=== PATIENT | male | born 1965 | race Caucasian/White ===

== ENCOUNTER 2017-10-19 10:11 | Observation (INO) | payer OTHER ==
[~2017-10-19] VITALS: Ht 177.8 cm; Wt 77.1 kg
--- NOTE | 2017-10-19 11:51 | ED GI/GU/ABDOMINAL COMPLAINT ---
History of Present Illness General Chief Complaint: Nausea, Vomiting, Diarrhea Stated Complaint: N/V/D Source: patient Exam Limitations: no limitations Allergies Coded Allergies: NO KNOWN ALLERGIES (02/03/11) Reconcile Medications Ondansetron (Zofran Odt) 4 MG TAB.RAPDIS 1 TAB PO Q6 PRN NAUSEA Triage Note: PT COMPLAINS OF N/V/ THAT STARTED YESTERDAY, ABD CRAMPING THAT STARTED AFTER THE VOMITTING, PT STATES THAT HE IS UNABLE TO HOLD ANYTHING DOWN. DENIES URINARY SYMPTOMS. ALSO STATES THAT HE HAS BODY ACHES Triage Nurses Notes Reviewed? yes Onset: Abrupt Duration: day(s): (2), constant, continues in ED Timing: recent history Location: generalized abdomen Radiation: no radiation Activities at Onset: none No Modifying Factors: none HPI: 52-year-old male comes into the emergency room for further evaluation of nausea vomiting diarrhea. Symptoms began yesterday. Patient has had more episodes of vomiting. Some general abdominal cramping. Some associated runny nose chills and body aches. Patient reports it is been unable to keep any fluids down at home. He comes in for further evaluation. (Osorio Callahan) Vital Signs & Intake/Output Vital Signs & Intake/Output Vital Signs Date Time Temp Pulse Resp B/P B/P Pulse O2 O2 Flow FiO2 Mean Ox Delivery Rate 10/20 1017 98.0 70 16 128/77 98 Room Air ED Intake and Output 10/21 0000 10/20 1200 Intake Total Output Total 20 Balance -20 Output, 20 Emesis (Epifanio MONZON,Collin Arriola) Past History Travel History Traveled to [place] past 21 day No Medical History Any Pertinent Medical History? see below for history Neurological: NONE EENT: NONE Cardiovascular: NONE Respiratory: NONE Gastrointestinal: NONE Hepatic: NONE Renal: NONE Musculoskeletal: NONE Psychiatric: NONE Endocrine: NONE Blood Disorders: NONE Cancer(s): NONE PHOTOGRAPHER SCIENTIFIC/Reproductive: NONE Surgical History Surgical History: non-contributory Psychosocial History What is your primary language Uzbek Tobacco Use: Current Daily Use Daily Tobacco Use Amount/Type: => 5 Cigarettes daily ETOH Use: denies use Illicit Drug Use: denies illicit drug use Family History Hx Contributory? No (Osorio Callahan) Review of Systems Review of Systems Constitutional: Reports: see HPI. EENTM: Reports: see HPI. Respiratory: Reports: no symptoms. Cardiovascular: Reports: no symptoms. GI: Reports: see HPI. Genitourinary: Reports: no symptoms. Musculoskeletal: Reports: no symptoms. Skin: Reports: no symptoms. Neurological/Psychological: Reports: no symptoms. Hematologic/Endocrine: Reports: no symptoms. Immunologic/Allergic: Reports: no symptoms. All Other Systems: Reviewed and Negative (Rowdy HASSAN,Osorio) Physical Exam Physical Exam General Appearance: well developed/nourished, no apparent distress, alert, awake Head: atraumatic, normal appearance Eyes: Bilateral: normal appearance. Ears, Nose, Throat, Mouth: hearing grossly normal, moist mucous membrane Neck: normal inspection, full range of motion Respiratory: normal breath sounds, no respiratory distress Cardiovascular: regular rate/rhythm Gastrointestinal: soft, tenderness Back: normal inspection Extremities: normal range of motion Neurologic/Psych: awake, alert, oriented x 3, normal gait, normal mood/affect Skin: intact, normal color Core Measures ACS in differential dx? No Sepsis Present: No Sepsis Focused Exam Completed? No (Osorio Callahan) Progress Differential Diagnosis: appendicitis, biliary colic, bowel obstruction, cholecystitis, diverticulitis, gastritis, ischemic bowel, pancreatitis, peptic ulcer, PUD/GERD, perforated viscous, pyelonephritis, SBO, ureterolithiasis, urinary retention, urethritis, UTI/pyelo Diagnostic Imaging: Viewed by Me: CT Scan. Discussed w/RAD: CT Scan. Radiology Impression: PATIENT: MCKENNA KENYON PRESENT AGE: 52 PATIENT ACCOUNT NO: [id number] : 66 LOCATION: [facility] ORDERING PHYSICIAN: Osorio HASSAN SERVICE DATE: 10/19/17 EXAM TYPE : CAT - CT ABD & PELVIS W IV CONTRAST EXAMINATION: CT ABDOMEN AND PELVIS WITH CONTRAST CLINICAL INFORMATION: Abdominal pain. Vomiting. COMPARISON: Ultrasound of abdomen 11/18/2008 TECHNIQUE: Multidetector volumetric imaging was performed of the abdomen and pelvis following IV administration of 95 mL of Optiray 320 intravenous contrast. Sagittal and coronal reformatted images were obtained on the technologist's workstation. DLP: 387.57 mGy-cm FINDINGS: LUNG BASES: The visualized lung bases are unremarkable. LIVER, GALLBLADDER, AND BILIARY TREE: There is mild low attenuation of liver parenchyma diffusely consistent with mild fatty change. No focal liver lesion. No intrahepatic bile duct dilatation. The gallbladder is unremarkable with no evidence of radiopaque gallstones, gallbladder wall thickening, or obvious pericholecystic inflammatory changes. PANCREAS: Unremarkable. SPLEEN: Unremarkable. Small splenule at the superior splenic margin ADRENAL GLANDS: Unremarkable. KIDNEYS AND URETERS: The kidneys are normal in size, shape, and attenuation. No hydronephrosis, hydroureter, or calculi seen. No perinephric stranding. BLADDER: Unremarkable. GASTROINTESTINAL TRACT: Moderate to large-volume of stool in the colon. Stool seen from cecum through the pelvis. No acute abnormality. No bowel obstruction. No bowel wall thickening or edema. No diverticula of colon. The appendix is not seen. There is no inflammation of the mesentery. The small bowel loops are unremarkable. MESENTERY: No inflammation. No free air or free fluid. ABDOMINAL WALL: Small fat -containing umbilical hernia. LYMPH NODES: Normal. VASCULAR: Unremarkable. PELVIC VISCERA: Prostate measures 4.8 cm transverse. Small coarse calcification in the prostate. OSSEOUS STRUCTURES: Unremarkable. IMPRESSION: No acute abnormality CT scan abdomen and pelvis. DICTATED BY: Ray Morton MD DATE/TIME DICTATED:10/19/171539 FUR REPAIR INSPECTOR:NAKIA DATE/TIME TRANSCRIBED:1539 CONFIDENTIAL, DO NOT COPY WITHOUT APPROPRIATE AUTHORIZATION. < Electronically signed in Other Vendor System> SIGNED BY: Ray Morton MD 1553 Initial ED EKG: none (Osorio Callahan) Hand-Off Endorsed To: Epifanio MONZON,Collin Arriola Endorsed Time: 1925 Pending: other (REEVLAUATION) (Savannah Pickett MD) Plan of Care: Orders Procedure Date/time Status Discharge Patient 10/20 1009 Active Current Medications Sig/Janie Start time Last Medication Dose Stop Time Status Admin Alprazolam 1 MG ONCE ONE 10/20 899 CAN (Xanax) 10/20 900 Methadone HCl 65 MG ONCE ONE 10/20 899 CAN (Dolophine) 10/20 900 Ondansetron HCl 4 MG Q6 10/19 1800 AC 10/20 (Zofran) 0641 Baclofen 10 MG TID 10/19 1745 AC 10/19 (Lioresal 10MG 1855 Tablet) Hand-Off Endorsed To: Savannah Pickett MD Endorsed Time: 0700 Pending: other (RE-EVAL) (Epifanio MONZON,Collin Arriola) Departure Departure Condition: Stable Referrals: Patient Has No Primary Care Dr (PCP/Family) Departure Forms: Customer Survey General Discharge Information Prescriptions: Current Visit Scripts Ondansetron (Zofran Odt) 1 TAB PO Q6 PRN NAUSEA #20 TAB (Osorio Callahan) Departure Time of Disposition: 1010 Disposition: HOME OR SELF CARE Clinical Impression Primary Impression: Gastroenteritis Secondary Impressions: Methadone withdrawal PA/FIBROUS PLASTERER Co-Sign Statement Statement: ED Attending supervision documentation- [X] I saw and evaluated the patient. I have also reviewed all the pertinent lab results and diagnostic results. I agree with the findings and the plan of care as documented in the PA's/FIBROUS PLASTERER's documentation. [X] I have reviewed the ED Record and agree with the PA's/FIBROUS PLASTERER's documentation. [] Additions or exceptions (if any) to the PAs/FIBROUS PLASTERER's note and plan are summarized below: [] (Savannah Pickett MD) ED Attending Observation Initial Observation Note: I have seen and personally examined KOSTASMCKENNA on 10/19/17 at 1743. I agree with the current emergency department documentation. The disposition (admission or discharge) is uncertain at this time, he needs a period of observation for the following reason(s): The ED Nurse caring for this patient has been personally informed as to what the patient is being observed for. (Osorio Callahan) Initial Observation Note: INTRACTABLE NAUSEA AND VOMITING, NOT TOLERATING PO. IV FLUIDS, ANTIEMETICS, CONSIDER SOME DEGREE OF OPIATE WITHDRAWAL, PLAN IS TO HAVE PATIENT BE ABLE TO TOLERATE PO AND THEN DISCHARGE HOME Observation Re-Evaluation: I have reevaluated MCKENNA KENYON on 10/20/17 at 0715. The physical findings that support the continued need to observe this patient include [PENDING TOLERATING PO]. 9 AM PATIENT NOW REPORTS THAT HE ABRUPTLY STOPPED HIS METHADONE. CONFIRMED WITH CLINIC IN [place], LAST DOSE 85 MG ON THE October. METHADONE ORDERED. LOCAL CLINICS PROVIDED TO PATIENT HE CAN NO LONGER TRAVEL TO [place]. Observation Discharge: I have reevaluated MCKENNA KENYON on 10/20/17 at 1009. The patient is: ([X]): Stable for discharge (): To be admitted to Nursing Floor (): To be placed in Observation on Nursing Floor (): For transfer to other facility The patient was being observed for [INTRACTABLE NAUSEA AND VOMITING, METHADONE WITHDRAWAL] As a result of that observation, I have determined [STABLE FOR DISCHARGE HOME, TOLERATING PO, WILL FOLLOW UP WITH OUTPATIENT LIST OF DETOX CLINICS]. (Nieves MONZON,Savannah) Observation Re-Evaluation: I have reevaluated MCKENNA KENYON on 10/20/17 at 0019. The physical findings that support the continued need to observe this patient include [nausea is much better controlled. Still feels very weak. We'll give ice chips and continue to measure. His abdomen is soft and nontender. No right lower quadrant tenderness.]. (Epifanio MONZON,Collin Arriola) Departure Time of Disposition: 1010 Disposition: HOME OR SELF CARE Clinical Impression Primary Impression: Gastroenteritis Secondary Impressions: Methadone withdrawal PA/FIBROUS PLASTERER Co-Sign Statement Statement: ED Attending supervision documentation- [X] I saw and evaluated the patient. I have also reviewed all the pertinent lab results and diagnostic results. I agree with the findings and the plan of care as documented in the PA's/FIBROUS PLASTERER's documentation. [X] I have reviewed the ED Record and agree with the PA's/FIBROUS PLASTERER's documentation. [] Additions or exceptions (if any) to the PAs/FIBROUS PLASTERER's note and plan are summarized below: [] (Savannah Pickett MD) ED Attending Observation Initial Observation Note: I have seen and personally examined MCKENNA KENYON on 10/19/17 at 1743. I agree with the current emergency department documentation. The disposition (admission or discharge) is uncertain at this time, he needs a period of observation for the following reason(s): The ED Nurse caring for this patient has been personally informed as to what the patient is being observed for. (Osorio Callahan) Initial Observation Note: INTRACTABLE NAUSEA AND VOMITING, NOT TOLERATING PO. IV FLUIDS, ANTIEMETICS, CONSIDER SOME DEGREE OF OPIATE WITHDRAWAL, PLAN IS TO HAVE PATIENT BE ABLE TO TOLERATE PO AND THEN DISCHARGE HOME Observation Re-Evaluation: I have reevaluated KOSTASMCKENNA HAHN on 10/20/17 at 0715. The physical findings that support the continued need to observe this patient include [PENDING TOLERATING PO]. 9 AM PATIENT NOW REPORTS THAT HE ABRUPTLY STOPPED HIS METHADONE. CONFIRMED WITH CLINIC IN [place], LAST DOSE 85 MG ON THE October. METHADONE ORDERED. LOCAL CLINICS PROVIDED TO PATIENT HE CAN NO LONGER TRAVEL TO [place]. Observation Discharge: I have reevaluated MCKENNA KENYON on 10/20/17 at 1009. The patient is: ([X]): Stable for discharge (): To be admitted to Nursing Floor (): To be placed in Observation on Nursing Floor (): For transfer to other facility The patient was being observed for [INTRACTABLE NAUSEA AND VOMITING, METHADONE WITHDRAWAL] As a result of that observation, I have determined [STABLE FOR DISCHARGE HOME, TOLERATING PO, WILL FOLLOW UP WITH OUTPATIENT LIST OF DETOX CLINICS]. (Nieves MONZON,Savannah) Observation Re-Evaluation: I have reevaluated KOSTASMCKENNA HAHN on 10/20/17 at 0019. The physical findings that support the continued need to observe this patient include [nausea is much better controlled. Still feels very weak. We'll give ice chips and continue to measure. His abdomen is soft and nontender. No right lower quadrant tenderness.]. (Epifanio MONZON,Collin Arriola)
[2017-10-19 12:10] LABS: ABSOLUTE BASOPHIL COUNT 0 /CUMM (0.0-0.2); ABSOLUTE EOSINOPHIL COUNT 0 /CUMM (0.0-0.7); ABSOLUTE GRANULOCYTE CT 9.5 /CUMM (1.4-6.5); ABSOLUTE LYMPH COUNT 0.9 /CUMM (1.2-3.4); ABSOLUTE MONOCYTE COUNT 0.3 /CUMM (0.10-0.60); BASOPHIL % 0.1 % (0.0-2.0); EOSINOPHIL % 0 % (0-5); HEMATOCRIT 45.3 % (42-52); MEAN CORPUSCULAR HGB 30.7 PG (27.0-31.0); MEAN CORPUSCULAR HGB CONC 34.2 G/DL (33.0-37.0); MEAN CORPUSCULAR VOLUME 89.8 FL (80.0-94.0); MEAN PLATELET VOLUME 8.4 FL (7.4-10.4); RBC DISTRIBUTION WIDTH 13.6 % (11.5-14.5); RED BLOOD CELL CT 5.05 /CUMM (4.70-6.10); WHITE BLOOD CELL COUNT 10.7 /CUMM (4.8-10.8)
[2017-10-19 12:23] LABS: PLATELET COUNT 291 /CUMM (130-400)
--- NOTE | 2017-10-19 15:53 | CT SCAN REPORT ---
EXAMINATION: CT ABDOMEN AND PELVIS WITH CONTRAST CLINICAL INFORMATION: Abdominal pain. Vomiting. COMPARISON: Ultrasound of abdomen 11/18/2008 TECHNIQUE: Multidetector volumetric imaging was performed of the abdomen and pelvis following IV administration of 95 mL of Optiray 320 intravenous contrast. Sagittal and coronal reformatted images were obtained on the technologist's workstation. DLP: 387.57 mGy-cm FINDINGS: LUNG BASES: The visualized lung bases are unremarkable. LIVER, GALLBLADDER, AND BILIARY TREE: There is mild low attenuation of liver parenchyma diffusely consistent with mild fatty change. No focal liver lesion. No intrahepatic bile duct dilatation. The gallbladder is unremarkable with no evidence of radiopaque gallstones, gallbladder wall thickening, or obvious pericholecystic inflammatory changes. PANCREAS: Unremarkable. SPLEEN: Unremarkable. Small splenule at the superior splenic margin ADRENAL GLANDS: Unremarkable. KIDNEYS AND URETERS: The kidneys are normal in size, shape, and attenuation. No hydronephrosis, hydroureter, or calculi seen. No perinephric stranding. BLADDER: Unremarkable. GASTROINTESTINAL TRACT: Moderate to large-volume of stool in the colon. Stool seen from cecum through the pelvis. No acute abnormality. No bowel obstruction. No bowel wall thickening or edema. No diverticula of colon. The appendix is not seen. There is no inflammation of the mesentery. The small bowel loops are unremarkable. MESENTERY: No inflammation. No free air or free fluid. ABDOMINAL WALL: Small fat-containing umbilical hernia. LYMPH NODES: Normal. VASCULAR: Unremarkable. PELVIC VISCERA: Prostate measures 4.8 cm transverse. Small coarse calcification in the prostate. OSSEOUS STRUCTURES: Unremarkable. IMPRESSION: No acute abnormality CT scan abdomen and pelvis.
[2017-10-20 07:19] VITALS: BP 138/72
[2017-10-20] MEDS ORDERED: ZOFRAN ODT4 M1 PO (10:15)
[2017-10-20 10:17] VITALS: BP 128/77
== END 2017-10-21 13:39 ==
LOC: ERH 10:11 → ERHI 17:18
PROVIDERS: Physician Assistant Medical
DX: K52.9 Noninfective gastroenteritis and colitis, unspecified (principal); R11.2 Nausea with vomiting, unspecified; R19.7 Diarrhea, unspecified; F17.200 Nicotine dependence, unspecified, uncomplicated; F11.23 Opioid dependence with withdrawal
CPT/HCPCS: 6090; 74177; 80307; 81001; 87804; 87804-59; 96372; 96374; 96375; 96376; G0378; J0500; J2405; J2550; J2765; J3250